=== PATIENT | female | born 1990 | race Caucasian/White ===

== ENCOUNTER 2020-03-07 22:32 | Outpatient (REF) | payer MEDICAID, SELFPAY ==
[2020-03-07 23:20] LABS: HGB 12.7 g/dL (11.2-15.7); MCH 30.7 pg (27.0-33.0); MCHC 32.6 % (32.0-36.0); MCV 94.2 fL (80-95); Platelet Count 309 10^3/uL (130-400); RBC 4.14 10^6/uL (3.93-5.22); WBC 9.17 10^3/uL (4.4-10.8)
== END 2020-03-07 22:52 ==
LOC: NCHCN 22:32
PROVIDERS: PCP Nurse Practitioner Community Health; Visit Provider Nurse Practitioner Community Health
DX: Z86.2 Personal history of diseases of the blood and blood-forming organs and certain disorders involving the immune mechanism (principal)
CPT/HCPCS: 85027

== ENCOUNTER 2020-03-20 14:39 | Outpatient (REF) | payer MEDICAID, SELFPAY ==
[2020-03-23 23:52] LABS: Patient Race White; SARS-CoV-2 RNA Undetected (Undetected); SARS-CoV-2 Specimen Source Nasal
== END 2020-03-20 14:59 ==
LOC: NCHCN 14:39
PROVIDERS: PCP Nurse Practitioner Community Health; Visit Provider Nurse Practitioner Community Health
DX: Z20.828 Contact with and (suspected) exposure to other viral communicable diseases (principal)
CPT/HCPCS: U0003

== ENCOUNTER 2021-11-29 20:55 | Outpatient (REF) | payer MEDICAID, SELFPAY ==
[2021-12-01 15:12] LABS: COVID-19 RT-PCR UVMMC Result Negative (Negative)
== END 2021-11-29 20:56 | disposition home or self-care (01) ==
LOC: NCHCN 20:55
PROVIDERS: PCP Nurse Practitioner Community Health; Visit Provider Registered Nurse
DX: Z20.822 Contact with and (suspected) exposure to COVID-19 (principal)
CPT/HCPCS: U0003

== ENCOUNTER 2022-03-18 14:11 | Outpatient (REF) | payer MEDICAID, SELFPAY | END 2022-03-18 14:12 | disposition home or self-care (01) | LOC: NCHCN 14:11 | PROVIDERS: PCP Nurse Practitioner Community Health; Visit Provider Nurse Practitioner Family | DX: R30.0 Dysuria (principal) | CPT/HCPCS: 87077; 87086; 87186 ==

== ENCOUNTER 2022-10-08 13:47 | Outpatient (REF) | payer MEDICAID, SELFPAY ==
--- NOTE | 2022-10-08 13:20 | PAPFT_PTH ---
PATIENT: Abby Vu LOC: [facility] U#:[id number] AGE/SX: 32/F ROOM: RE10/08/[address]: Priti Pedroza : 1990 BED: DIS: 10/08/2022 SPEC #: [id number] RECD: 10/09/22 13:05 STATUS: JANAY REFamilia #: [id number] MIGEL: 10/08/22 13:[address]: Priti Pedroza DEPT: [facility] Cytology RECD BY: Arin Asif ENTERED: 10/09/22 13:06 SP TYPE: PAPFT OTHR DR: Mayte Jiang Tissues: 1 - CX/ENDOCX FOR PAP SMEARS Procedures: PAP THIN PREP/[facility] Screening HPV DNA PROBE Comments: [id number] (CHLAMYDIA/GC)
[2022-10-10 14:39] LABS: Chlamydia Result Negative (Negative); GC Result Negative (Negative)
== END 2022-10-08 13:48 | disposition home or self-care (01) ==
LOC: NCHCN 13:47
PROVIDERS: PCP Nurse Practitioner Community Health; Visit Provider Nurse Practitioner Family
DX: Z11.3 Encounter for screening for infections with a predominantly sexual mode of transmission (principal); Z12.4 Encounter for screening for malignant neoplasm of cervix; Z11.51 Encounter for screening for human papillomavirus (HPV)
CPT/HCPCS: 87491; 87591; 88142; 87624

== ENCOUNTER 2023-02-17 16:13 | Outpatient (REF) | payer MEDICAID, SELFPAY ==
[2023-02-17 21:30] LABS: HCT 38.1 % (36.0-46.0); HGB 12.6 g/dL (11.2-15.7); MCH 29.7 pg (27.0-33.0); MCHC 33.1 % (32.0-36.0); MCV 90 fL (80-95); Platelet Count 226 10^3/uL (130-400); RBC 4.24 10^6/uL (3.93-5.22); RDW 12.5 % (11.7-14.6); RDW-SD 41.5 fL; WBC 9.58 10^3/uL (4.4-10.8)
[2023-02-17 21:57] LABS: Ferritin 21 ng/mL (8-252); TSH (W/Ref FT4) 0.97 uIU/mL (0.36-3.74)
[2023-02-17 22:08] LABS: Vitamin D 25 Total 36.4 ng/mL (30-100)
== END 2023-02-17 16:14 | disposition home or self-care (01) ==
LOC: NCHCN 16:13
PROVIDERS: PCP Nurse Practitioner Community Health; Visit Provider Nurse Practitioner Family
DX: R53.83 Other fatigue (principal); E55.9 Vitamin D deficiency, unspecified; Z86.2 Personal history of diseases of the blood and blood-forming organs and certain disorders involving the immune mechanism
CPT/HCPCS: 82306; 85027; 82728; 84443